=== PATIENT | male | born 2000 | race Caucasian/White ===

== ENCOUNTER 2019-01-25 19:13 | Emergency (ER) | payer OTHER ==
[2019-01-25] MEDS ORDERED: Lorazepam 0.5 MG TAB ONE (19:20)
== END 2019-01-25 19:55 | disposition home or self-care (01) ==
LOC: BURERS 19:13
DX: F41.1 Generalized anxiety disorder (principal); Z79.899 Other long term (current) drug therapy
CPT/HCPCS: 93005